=== PATIENT | male | born 1980 | race Caucasian/White ===

== ENCOUNTER 2020-09-04 10:59 | Emergency (ER) | payer SELFPAY ==
[~2020-09-04] VITALS: Ht 177.8 cm; Wt 86.4 kg
[2020-09-04 11:18] VITALS: BP 147/67; Ht 177.8 cm; Wt 86.4 kg
[2020-09-04] MEDS ORDERED: PAXIL10 MG/5 ML PO (11:20)
[2020-09-04] MEDS ORDERED: MEDROL DOSE PACK4 MG PO (13:43)
[2020-09-04] MEDS ORDERED: GUAIFEN-CODEINE10 ML PO (13:43)
[2020-09-04] MEDS ORDERED: ZPAK PO (13:43)
== END 2020-09-04 14:28 | disposition home or self-care (01) ==
LOC: D.ER 10:59
DX: J20.9 Acute bronchitis, unspecified (principal); R05 Cough